=== PATIENT | female | born 1955 | race Caucasian/White ===

== ENCOUNTER 2017-09-17 17:19 | Inpatient (IN) | payer OTHER ==
[~2017-09-17] VITALS: Ht 152.4 cm; Wt 46.1 kg
[2017-09-17 18:36] LABS: BASOPHIL % 0.1 % (0-2); PLATELET COUNT 199 x10^3mcL (130-400)
[2017-09-17 18:38] LABS: CALCIUM 8.8 mg/dL (8.5-10.1); CARBON DIOXIDE 25.4 mmol/L (21-32); CREATININE SERUM 1.2 mg/dL (0.6-1.0); POTASSIUM SERUM 4.5 mmol/L (3.5-5.1)
[2017-09-17] MEDS ORDERED: TOP50 PO (18:40)
[2017-09-17] MEDS ORDERED: LIPITOR40 MG PO (18:40)
[2017-09-17] MEDS ORDERED: NOR5 PO (18:41)
[2017-09-17] MEDS ORDERED: ARICEPT5 MG PO (18:42)
[2017-09-17] MEDS ORDERED: TRICOR48 M1 PO (18:42)
[2017-09-17] MEDS ORDERED: KEPPRA500 MG PO (18:43)
[2017-09-17] MEDS ORDERED: GLUCOPHAGE XR500 MG PO (18:43)
[2017-09-17 18:49] LABS: T3 TOTAL 0.44 ng/mL
[2017-09-17 18:50] LABS: CK-MB < 0.5 ng/mL (0-3.6); CREATINE KINASE 40 U/L (26-192)
[2017-09-17 18:53] LABS: BILIRUBIN TOTAL 0.8 mg/dL (0.20-1.00); TOTAL PROTEIN, SERUM 6.5 g/dL (6.4-8.2)
[2017-09-17 18:54] LABS: ALBUMIN 2.2 g/dL (3.4-5.0); C REACTIVE PROTEIN 12.8 mg/dL (<=0.9)
[2017-09-17 19:27] LABS: ERYTHROCYTE SED RATE 43 mm/hr (0-30)
[2017-09-17 19:51] LABS: FREE T4 1.26 ng/dL (0.76-1.46); FREE THYROXINE INDEX 2.3 ug/dL (1.4-4.5); T4(THYROXINE) 5.8 ug/dL (4.7-13.3)
[2017-09-17 20:29] LABS: MAGNESIUM 1.6 mg/dL (1.8-2.4); PHOSPHOROUS 2.7 mg/dL (2.5-4.9)
[2017-09-17 20:30] LABS: CHOLESTEROL/HDL RATIO 3.2
[2017-09-17 20:44] LABS: UA SPECIFIC GRAVITY 1.015 (1.005-1.035); microscopic required? YES; urine erythrocyte 2+ (NEGATIVE)
[2017-09-17 22:11] VITALS: BP 82/61
[2017-09-17 23:15] VITALS: BP 82/61
[2017-09-18 01:41] LABS: IRON 21 ug/dL (50-170); TOTAL IRON BINDING CAPACITY 151 ug/dL (250-450)
[2017-09-18 01:59] VITALS: BP 84/59
[2017-09-18 05:32] VITALS: BP 103/75
[2017-09-18 09:33] LABS: CALCIUM 7.7 mg/dL (8.5-10.1); CARBON DIOXIDE 20.6 mmol/L (21-32); CREATININE SERUM 1.2 mg/dL (0.6-1.0); POTASSIUM SERUM 3.6 mmol/L (3.5-5.1)
[2017-09-18 12:43] LABS: PLATELET COUNT 172 x10^3mcL (130-400); RED BLOOD CELLS 3.62 M/mm3 (4.10-5.10)
[2017-09-18 12:44] LABS: RED CELL DISTRIBUTION WIDTH 18.3 % (11.5-14.5)
[2017-09-18 13:49] LABS: BAND NEUTROPHIL 7 % (0-10); BASOPHIL 0 % (0-2); MONOCYTE 1 % (0-7); SEGMENTED NEUTROPHILS 88 % (37-75)
[2017-09-18 13:53] LABS: acanthocyte (spur cell) 2+; rbc morphology (normal/abnorm) ABNORMAL (NORMAL)
[2017-09-18 13:54] LABS: PLATELET MORPHOLOGY PLATELETS DECREASED; burr cell (echinocyte) 2+
[2017-09-18 17:34] VITALS: BP 107/74
[2017-09-18 21:15] VITALS: BP 106/66
[2017-09-19 05:27] LABS: BASOPHIL % 0.1 % (0-2); PLATELET COUNT 160 x10^3mcL (130-400)
[2017-09-19 05:57] LABS: CALCIUM 8.1 mg/dL (8.5-10.1); CARBON DIOXIDE 23.9 mmol/L (21-32); CREATININE SERUM 1.4 mg/dL (0.6-1.0); MAGNESIUM 2.3 mg/dL (1.8-2.4); PHOSPHOROUS 3.7 mg/dL (2.5-4.9)
[2017-09-19 05:58] LABS: POTASSIUM SERUM 2.5 mmol/L (3.5-5.1)
[2017-09-19 06:08] VITALS: BP 98/62
[2017-09-19 06:09] LABS: RED CELL DISTRIBUTION WIDTH 18.1 % (11.5-14.5)
[2017-09-19 08:56] VITALS: BP 85/61
[2017-09-19 12:00] VITALS: BP 86/63
[2017-09-19 13:43] VITALS: BP 114/68
[2017-09-19 15:10] LABS: CALCIUM 7.1 mg/dL (8.5-10.1); CARBON DIOXIDE 23.8 mmol/L (21-32); CREATININE SERUM 1.5 mg/dL (0.6-1.0)
[2017-09-19 15:28] LABS: POTASSIUM SERUM 2.9 mmol/L (3.5-5.1)
[2017-09-19 17:22] VITALS: BP 98/69
[2017-09-19 20:54] VITALS: BP 102/66
[2017-09-20] VITALS (11 sets, daily range): BP systolic 93–143; BP diastolic 61–91
[2017-09-20 06:36] LABS: CALCIUM 7.8 mg/dL (8.5-10.1); CARBON DIOXIDE 22.9 mmol/L (21-32); CREATININE SERUM 1.4 mg/dL (0.6-1.0); MAGNESIUM 1.8 mg/dL (1.8-2.4); PHOSPHOROUS 1.7 mg/dL (2.5-4.9); POTASSIUM SERUM 3.4 mmol/L (3.5-5.1)
[2017-09-20 06:43] LABS: BASOPHIL % 0.1 % (0-2); PLATELET COUNT 165 x10^3mcL (130-400)
[2017-09-20 07:08] LABS: RED CELL DISTRIBUTION WIDTH 18.3 % (11.5-14.5)
[2017-09-20 21:44] LABS: APPEARANCE FLUID CLOUDY; COLOR FLUID YELLOW; SOURCE FLUID THORACENTESIS
[2017-09-20 21:45] LABS: RBC FLUID 5656 /cumm; WBC FLUID 1389 /cumm
[2017-09-20 21:46] LABS: LYMPHOCYTE FLUID 35 %; MONOCYTE FLUID 5 %
[2017-09-21 05:35] VITALS: BP 93/54
[2017-09-21 06:04] LABS: CALCIUM 8.3 mg/dL (8.5-10.1); CARBON DIOXIDE 28.9 mmol/L (21-32); CREATININE SERUM 1.4 mg/dL (0.6-1.0); MAGNESIUM 1.7 mg/dL (1.8-2.4); PHOSPHOROUS 2.6 mg/dL (2.5-4.9)
[2017-09-21 06:16] LABS: POTASSIUM SERUM 2.6 mmol/L (3.5-5.1)
[2017-09-21 08:04] LABS: PLATELET COUNT 184 x10^3mcL (130-400)
[2017-09-21 08:31] LABS: RED CELL DISTRIBUTION WIDTH 18.5 % (11.5-14.5)
[2017-09-21 09:00] VITALS: BP 109/64
[2017-09-21 11:14] VITALS: Ht 152.4 cm; Wt 46.1 kg
[2017-09-21 11:45] VITALS: BP 110/72
[2017-09-21 13:54] LABS: SEGMENTED NEUTROPHILS 50 % (37-75)
[2017-09-21 13:55] LABS: BAND NEUTROPHIL 31 % (0-10); MONOCYTE 2 % (0-7); rbc morphology (normal/abnorm) NORMAL (NORMAL)
[2017-09-21 13:57] LABS: PLATELET MORPHOLOGY PLATELETS NORMAL
[2017-09-21 15:47] LABS: CALCIUM 8.1 mg/dL (8.5-10.1); CARBON DIOXIDE 23.8 mmol/L (21-32); CREATININE SERUM 1.4 mg/dL (0.6-1.0); POTASSIUM SERUM 3.8 mmol/L (3.5-5.1)
[2017-09-21 16:30] VITALS: BP 108/74
[2017-09-21 20:00] VITALS: BP 151/99
[2017-09-22] VITALS: BP 94/68
[2017-09-22 04:10] VITALS: BP 119/84
[2017-09-22 06:48] LABS: CALCIUM 8.8 mg/dL (8.5-10.1); CARBON DIOXIDE 22.1 mmol/L (21-32); CREATININE SERUM 1.2 mg/dL (0.6-1.0); MAGNESIUM 2.2 mg/dL (1.8-2.4); PHOSPHOROUS 2.2 mg/dL (2.5-4.9); POTASSIUM SERUM 4.3 mmol/L (3.5-5.1)
[2017-09-22 07:51] LABS: PLATELET COUNT 196 x10^3mcL (130-400)
[2017-09-22 07:55] LABS: RED CELL DISTRIBUTION WIDTH 17.8 % (11.5-14.5)
[2017-09-22 08:00] VITALS: BP 111/85
[2017-09-22 11:30] VITALS: BP 91/66
[2017-09-22 13:12] LABS: MONOCYTE 1 % (0-7); SEGMENTED NEUTROPHILS 58 % (37-75)
[2017-09-22 13:13] LABS: BAND NEUTROPHIL 26 % (0-10)
[2017-09-22 13:14] LABS: rbc morphology (normal/abnorm) ABNORMAL (NORMAL)
[2017-09-22 13:15] LABS: PLATELET MORPHOLOGY PLATELETS NORMAL; acanthocyte (spur cell) 1+; ovalocyte/elliptocyte 2+; schistocyte (helmet cell) 1+
[2017-09-22 15:50] VITALS: BP 113/88
[2017-09-22 20:00] VITALS: BP 97/62
[2017-09-23] VITALS (7 sets, daily range): BP systolic 95–130; BP diastolic 62–85
[2017-09-23 05:56] LABS: PLATELET COUNT 149 x10^3mcL (130-400); RED CELL DISTRIBUTION WIDTH 18.1 % (11.5-14.5)
[2017-09-23 05:57] LABS: BASOPHIL % 0.1 % (0-2)
[2017-09-23 06:41] LABS: CALCIUM 8.3 mg/dL (8.5-10.1); CARBON DIOXIDE 24.6 mmol/L (21-32); CREATININE SERUM 1.4 mg/dL (0.6-1.0); POTASSIUM SERUM 4.5 mmol/L (3.5-5.1)
[2017-09-23 06:56] LABS: PHOSPHOROUS 2.9 mg/dL (2.5-4.9)
[2017-09-24] VITALS (7 sets, daily range): BP systolic 103–132; BP diastolic 62–84
[2017-09-24 06:51] LABS: CALCIUM 8.5 mg/dL (8.5-10.1); CARBON DIOXIDE 25.1 mmol/L (21-32); CREATININE SERUM 1.2 mg/dL (0.6-1.0); PHOSPHOROUS 3.1 mg/dL (2.5-4.9); POTASSIUM SERUM 3.6 mmol/L (3.5-5.1)
[2017-09-24 12:13] LABS: PLATELET COUNT 173 x10^3mcL (130-400); RED CELL DISTRIBUTION WIDTH 18.5 % (11.5-14.5)
[2017-09-24 13:52] LABS: BAND NEUTROPHIL 6 % (0-10); BASOPHIL 0 % (0-2); MONOCYTE 3 % (0-7); SEGMENTED NEUTROPHILS 78 % (37-75)
[2017-09-24 13:53] LABS: PLATELET MORPHOLOGY PLATELETS DECREASED; rbc morphology (normal/abnorm) ABNORMAL (NORMAL)
[2017-09-24] MEDS ORDERED: ZOS3PM IV (16:13)
[2017-09-24] MEDS ORDERED: FER300 PO (16:14)
[2017-09-24] MEDS ORDERED: IPRATROPIUM BROM3 M2 HHN (16:14)
[2017-09-24] MEDS ORDERED: COR200 PO (16:15)
[2017-09-24] MEDS ORDERED: DIG125 PO (16:15)
[2017-09-24] MEDS ORDERED: LORAZEPAM0.5 MG PO (16:15)
[2017-09-24] MEDS ORDERED: LAC PO (16:16)
[2017-09-24] MEDS ORDERED: COL100 PO (16:16)
[2017-09-24] MEDS ORDERED: COUGH100 MG/5 M PO (16:16)
[2017-09-24] MEDS ORDERED: VITC PO (16:17)
[2017-09-25 06:22] LABS: CALCIUM 8.4 mg/dL (8.5-10.1); CARBON DIOXIDE 27.9 mmol/L (21-32); CREATININE SERUM 1.1 mg/dL (0.6-1.0)
[2017-09-25 06:26] VITALS: BP 99/67
[2017-09-25 06:43] LABS: PLATELET COUNT 150 x10^3mcL (130-400)
[2017-09-25 06:44] LABS: BASOPHIL % 0 % (0-2); RED CELL DISTRIBUTION WIDTH 18.3 % (11.5-14.5)
[2017-09-25 06:51] LABS: ALBUMIN 1.3 g/dL (3.4-5.0)
[2017-09-25 06:52] LABS: POTASSIUM SERUM 2.8 mmol/L (3.5-5.1)
[2017-09-25 08:20] VITALS: BP 99/66
[2017-09-25 12:58] VITALS: BP 104/67
[2017-09-25 16:20] VITALS: BP 136/82
[2017-09-25 16:33] LABS: CALCIUM 8.7 mg/dL (8.5-10.1); CARBON DIOXIDE 26.4 mmol/L (21-32); CREATININE SERUM 1.4 mg/dL (0.6-1.0); POTASSIUM SERUM 3.6 mmol/L (3.5-5.1)
== END 2017-09-25 18:30 | DRG 871 ==
LOC: ED 17:19 → DU 19:59 → IC 09-21 09:07 → DU 09-23 11:23
PROVIDERS: Family Medicine; Specialist
PROC: 0W993ZZ Drainage of Right Pleural Cavity, Percutaneous Approach (ICD-10-PCS; principal; 2017-09-20)
DX: A41.9 Sepsis, unspecified organism (principal); J69.0 Pneumonitis due to inhalation of food and vomit; G93.41 Metabolic encephalopathy; N17.0 Acute kidney failure with tubular necrosis; E43 Unspecified severe protein-calorie malnutrition; K85.90 Acute pancreatitis without necrosis or infection, unspecified; N39.0 Urinary tract infection, site not specified; J90 Pleural effusion, not elsewhere classified; Z68.1 Body mass index [BMI] 19.9 or less, adult; E87.1 Hypo-osmolality and hyponatremia; K81.0 Acute cholecystitis; R18.8 Other ascites; I31.3 Pericardial effusion (noninflammatory); R65.20 Severe sepsis without septic shock; R62.7 Adult failure to thrive; I10 Essential (primary) hypertension; G30.9 Alzheimer's disease, unspecified; F02.80 Dementia in other diseases classified elsewhere, unspecified severity, without behavioral disturbance, psychotic disturbance, mood disturbance, and anxiety; E11.65 Type 2 diabetes mellitus with hyperglycemia; M25.511 Pain in right shoulder; E78.1 Pure hyperglyceridemia; Z91.19 Patient's noncompliance with other medical treatment and regimen; E87.6 Hypokalemia; E83.42 Hypomagnesemia; G40.909 Epilepsy, unspecified, not intractable, without status epilepticus; I48.0 Paroxysmal atrial fibrillation; K72.90 Hepatic failure, unspecified without coma; J44.9 Chronic obstructive pulmonary disease, unspecified; M85.80 Other specified disorders of bone density and structure, unspecified site; E83.39 Other disorders of phosphorus metabolism; G31.9 Degenerative disease of nervous system, unspecified
CPT/HCPCS: 32555; 36600; 82962; 83880; 84439; 92610; 97110-GP; 97116-GP; 97164; 97530-GP; C1729; J0282; J1160; J1940; J2001; J2543; J3475; J3480; J3490; J7030; J7040; J7620; Q0092